=== PATIENT | male | born 1995 | race African-American/Black ===

== ENCOUNTER 2020-05-04 23:59 | Emergency (ER) | payer OTHER ==
[~2020-05-04] VITALS: Ht 177.8 cm; Wt 68.1 kg
--- NOTE | 2020-05-05 00:48 | PHYS DOC ---
Past Medical History Past Medical History: No Pertinent History Past Surgical History: No Surgical History Smoking Status: Never Smoker Alcohol Use: None Adult General Chief Complaint Chief Complaint: KNEE INJURY HPI HPI Patient is a 25 year old male with no significant past medical history presenting the emergency department new onset of left-sided knee pain and swelling. Patient states that prior to arrival he was at work having boxes when he twisted and felt a popping sensation in the left medial knee. Has since been having pain and swelling over the left medial knee. Denies any fall or other injury. Denies any numbness or weakness of the lower extremity. Review of Systems Review of Systems Constitutional: Denies fever or chills [] Eyes: Denies change in visual acuity, redness, or eye pain [] HENT: Denies nasal congestion or sore throat [] Respiratory: Denies cough or shortness of breath [] Cardiovascular: No additional information not addressed in HPI [] GI: Denies abdominal pain, nausea, vomiting, bloody stools or diarrhea [] : Denies dysuria or hematuria [] Musculoskeletal: Denies back pain or joint pain [] Integument: Denies rash or skin lesions [] Neurologic: Denies headache, focal weakness or sensory changes [] Endocrine: Denies polyuria or polydipsia [] All other systems were reviewed and found to be within normal limits, except as documented in this note. Allergies Allergies Allergies Coded Allergies Type Severity Reaction Last Updated Verified No Known Drug Allergies 05/05/20 No Physical Exam Physical Exam Constitutional: Well developed, well nourished, no acute distress, non-toxic appearance. [] HENT: Normocephalic, atraumatic, bilateral external ears normal, oropharynx moist, no oral exudates, nose normal. [] Eyes: PERRLA, EOMI, conjunctiva normal, no discharge. [] Neck: Normal range of motion, no tenderness, supple, no stridor. [] Cardiovascular:Heart rate regular rhythm, no murmur [] Lungs & Thorax: Bilateral breath sounds clear to auscultation [] Abdomen: Bowel sounds normal, soft, no tenderness, no masses, no pulsatile masses. [] Skin: Warm, dry, no erythema, no rash. [] Back: No tenderness, no CVA tenderness. [] Extremities: No tenderness, no cyanosis, no clubbing, ROM intact, no edema. [] Neurologic: Alert and oriented X 3, normal motor function, normal sensory function, no focal deficits noted. [] Psychologic: Affect normal, judgement normal, mood normal. [] Current Patient Data Vital Signs Vital Signs Date Time Temp Pulse Resp B/P (MAP) Pulse Ox O2 Delivery O2 Flow Rate FiO2 05/05/20 00:10 98.0 76 16 138/80 (99) 99 Room Air 98.0 EKG EKG [] Radiology/Procedures Radiology/Procedures KNEE 3 VIEWS LEFT Clinical Indication: Reason: L knee injury ER#07 / Spl. Instructions: / History: Comparison: None. Findings: There is no acute fracture or dislocation. The tricompartmental joint spaces are maintained. The patella is in anatomic position. There is no soft tissue abnormality. There is no large joint effusion. IMPRESSION: 1. No acute fracture. 2. Large joint effusion. Electronically signed by: Rc Toribio MD (05/05/2020 1:33 AM) [facility][] Course & Med Decision Making Course & Med Decision Making pertinent Labs and Imaging studies reviewed. (See chart for details) 25-year-old male presenting with severe swelling and tenderness to the right medial knee and positive varus test concerning for right medial collateral ligament or meniscal tear. At this time will obtain an x-ray to make sure there is no bony injury and otherwise we will plan to discharge home with a knee immobilizer, crutches and orthopedic surgery follow-up. XR without fracture. Dragon Disclaimer Dragon Disclaimer This electronic medical record was generated, in whole or in part, using a voice recognition dictation system. Departure Departure Impression: Primary Impression: Left knee injury Disposition: 01 DC HOME SELF CARE/HOMELESS Condition: GOOD Referrals: NO PCP (PCP) Patient Instructions: Medial Collateral Ligament Injury Requiring Surgery Additional Instructions: EMERGENCY DEPARTMENT GENERAL DISCHARGE INSTRUCTIONS Thank you for coming to [facility] Emergency Department (ED) today and trusting us with you care. We trust that you had a positive experience in our Emergency Department. If you wish to speak to the department management, you may call the Director at [phone]. YOUR FOLLOW UP INSTRUCTIONS ARE FOLLOWS: 1. Do you have a private Doctor? If you do not have a private doctor, please ask for a resource list of physicians or clinics that may be able to assist you with follow up care. 2. The Emergency Physicain has interpreted your x-rays. The X-Ray specialist will also review them. If there is a change in the findings, you will be notified in 48 hours when at all possible. 3. A lab test or culture has been done, your results will be reviewed and you will be notified if you need a change in treatment. ADDITIONAL INSTRUCTIONS AND INFORMATION: 1. Your care today has been supervised by a physician who is specially trained in emergency care. Many problems require more than one evaluation for a complete diagnosis and treatment. We recommend that you schedule your follow up appointment as recommended to ensure complete treatment of you illness or injury. If you are unable to obtain follow up care and continue to have a problem, or if your condition worsens, we recommend that you return to the ED. 2. We are not able to safely determine your condition over the phone nor are we able to give sound medical advice over the phone. For these safety reasons, if you call for medical advice we will ask you to come to the ED for further evaluation. 3. If you have any questions regarding these discharge instructions please call the ED at [phone]. SAFETY INFORMATION: In the interest of safety, wellness, and injury prevention; we encourage you to wear your sealbelt, if you smoke; quite smoking, and we encourage family to use a protective helmet for bicycling and other sporting events that present an increased risk for head injury. IF YOUR SYMPTOMS WORSEN OR NEW SYMPTOMS DEVELOP, OR YOU HAVE CONCERNS ABOUT YOUR CONDITION; OR IF YOUR CONDITION WORSENS WHILE YOU ARE WAITING FOR YOUR FOLLOW UP APPOINTMENT; EITHER CONTACT YOUR PRIMARY CARE DOCTOR, THE PHYSICIAN WHOSE NAME AND NUMBER YOU WERE GIVEN, OR RETURN TO THE ED IMMEDIATELY. MOOKIE SANCHEZ MD May 05, 2020 00:48
--- NOTE | 2020-05-05 01:35 | RAD ---
KNEE 3 VIEWS LEFT Clinical Indication: Reason: L knee injury ER#07 / Spl. Instructions: / History: Comparison: None. Findings: There is no acute fracture or dislocation. The tricompartmental joint spaces are maintained. The reyes lla is in anatomic position. There is no soft tissue abnormality. There is no large joint effusion. IMPRESSION: 1. No acute fracture. 2. Large joint effusion. Electronically signed by: Rc Toribio MD (05/05/2020 1:33 AM) [facility]
[2020-05-05 02:00] VITALS: BP 161/78
== END 2020-05-05 02:11 | disposition home or self-care (01) ==
LOC: ER 23:59
DX: S89.82XA Other specified injuries of left lower leg, initial encounter (principal); R20.2 Paresthesia of skin; R60.0 Localized edema; W20.8XXA Other cause of strike by thrown, projected or falling object, initial encounter; Y93.89 Activity, other specified; Y92.89 Other specified places as the place of occurrence of the external cause; Y99.0 Civilian activity done for income or pay
CPT/HCPCS: 29505; 73562; 99283